=== PATIENT | male | born 1970 | race Caucasian/White ===

== ENCOUNTER 2017-02-13 11:50 | Inpatient (IN) | payer BC ==
--- NOTE | 2017-02-13 13:44 | RAD ---
RIGHT THUMB 3 VIEWS: HISTORY: Redness and swelling of right thumb with tenderness. FINDINGS: Soft tissue swelling noted. No osseous abnormality seen. IMPRESSION: No acute osseous abnormality. POS: [facility]
[2017-02-13] MEDS ORDERED: Ketorolac Tromethamine 30 MG/ML VIAL ONE (14:12)
[2017-02-13] MEDS ORDERED: Adacel (T-DAP) 0.5 ML VIAL ONE (14:12)
[2017-02-13 14:19] LABS: #Eosinphils 0.4 thou/uL (0.0-0.7); #Lymphocytes 1.9 thou/uL (1.20-3.40); #Monocytes 1.2 thou/uL (0.11-0.59); #Neutrophils 11.2 thou/uL (1.40-6.50); %Basophils 0.2 % (0.0-1.0); %Eosinophils 2.4 % (0.0-10.0); %Lymphocytes 12.7 % (21.0-51.0); Hematocrit 43.1 % (42.0-52.0); Mean Platelet Volume 6.9 fL (7.4-10.4); Red Blood Cell (RBC) Count 5.21 mill/uL (4.70-6.10); White Blood Cell (WBC) Count 14.6 thou/uL (4.8-10.8)
[2017-02-13 14:33] LABS: ALT (SGPT) 16 U/L (8-55); AST (SGOT) 14 U/L (5-34); Alkaline Phosphatase 85 U/L (40-150); Anion Gap 12 mmol/L (10-20); BUN (Urea Nitrogen) 15 mg/dL (8.9-20.6); Bilirubin, Total 0.4 mg/dL (0.2-1.2); Calc. Creatinine Clearance 0 mL/min (70-130); Calcium 9.3 mg/dL (7.8-10.44); Carbon Dioxide 24 mmol/L (22-29); Chloride 107 mmol/L (98-107); Estimated GFR-MDRD 65; Globulin 3.8 g/dL (2.4-3.5); Protein, Total 7.8 g/dL (6.0-8.3)
[2017-02-13] MEDS ORDERED: Sodium Chloride 0.9% 1,000 ML IV SCH (16:01)
[2017-02-13] MEDS ORDERED: HYDROcodone/Acetaminophen 5/325 mg Tablet PO PRN (16:03)
[2017-02-13] MEDS ORDERED: FLU VACC QS2017-18 36 mo. & older 0.5 ML SYRINGE IM ONE (16:15)
[2017-02-13] MEDS: HYDROcodone/Acetaminophen 5/325 mg Tablet PO PRN ×2 (16:17→23:29)
[2017-02-13] MEDS: rOPINIRole HCl 1 MG TAB PO SCH (20:44)
--- NOTE | 2017-02-14 00:34 | HP ---
DATE OF ADMISSION: 02/13/2017 REASON/CHIEF COMPLAINT: Swelling and pain, right thumb. HISTORY OF PRESENT ILLNESS: Mr. Finnegan is a 46-year-old male with past medical history of r estless leg syndrome, noted to have right thumb swelling and pain started a few days ago. The patien t was seen in the office and given Bactrim for possible boil, but the patient states the infection di d not get better, in fact, it got worse. There is more erythema, more swelling, also noticed other a reas where he has similar swelling, pain, and redness in the scalp as well as left arm as well as leg s. The patient has a history of Staph infection in the past cleared with Bactrim, but this time, it is not working. The patient did not have any fever, no chest pain or shortness of breath. The patie nt decided to come to the hospital because of worsening of the condition. In the ER, the patient was evaluated and found to have possible Staph infection disseminated. The patient was given 1 dose of vancomycin and continued on vancomycin and admitted for further evaluation and management. PAST MEDICAL HISTORY: 1. Restless leg syndrome. 2. History of questionable emphysema. 3. Chronic back pain. PAST SURGICAL HISTORY: 1. Status post back surgery x2. 2. History of multilevel thoracic spine fractures. 3. Tobacco abuse. CURRENT MEDICATIONS: He takes Requip 0.5 mg daily, Bactrim double strength 1 b.i.d. ALLERGIES: No known drug allergies. FAMILY HISTORY: Nothing of interest. SOCIAL HISTORY: The patient lives with family. No history of alcohol intake. Smokes 1 pack a day a nd has been smoking for many years. REVIEW OF SYSTEMS: Cardiovascular: No chest pain. No shortness of breath. Respiratory: No fever or cough. Gastrointestinal: No nausea or vomiting. No abdominal pain. Genitourinary: No dysuria or hematuria. CARD DOFFER: No headache, no dizziness. PHYSICAL EXAMINATION: GENERAL: The patient is alert, awake, oriented x3. VITAL SIGNS: Temperature 98, pulse 70, respirations 20, blood pressure 130/80. HEENT: Head is normocephalic, atraumatic. Pupils equal and reactive to light. Nasopharynx is pale and dry. Hard and soft palate, no lesions seen. SKIN: Skin turgor is decreased. NECK: Supple. No JVD. LUNGS: Bilateral air entry present, no rales, no rhonchi. HEART: S1, S2, regular. ABDOMEN: Soft, no distention, no tenderness. Normal bowel sounds. CENTRAL NERVOUS SYSTEM: No focal deficits. SKIN: Right thumb area, there is marked swelling present, erythema present, tender, is warm to touch , and there is some induration, as well. A 1 cm lesion present on the left forearm and also scalp an d both thighs. LABORATORY DATA AND X-RAY FINDINGS: CBC shows WBC 14.6, hemoglobin 14, hematocrit 43, platelets 307. Metabolic panel: Sodium 139, potassium 4, chloride 106, CO2 of 25, urea nitrogen 15, creatinine 1. 8, glucose 108. Finger x-ray negative. ASSESSMENT: 1. Disseminated cutaneous Staphylococcal infection. 2. Restless leg syndrome. 3. History of back pain, status post back surgery. PLAN: 1. Vital signs q. 4 hours. 2. Activity: As tolerated. 3. Allergies: NKDA. 4. Vancomycin 1 gram IV piggyback q. 12 hours. 5. Continue home medication. 6. Diet: Regular. 7. Infectious Disease consult.
[2017-02-14] MEDS: Vancomycin HCl 1 GM in Premix Bag 1 BAG IVPB SCH ×2 (01:43→13:12)
[2017-02-14] MEDS: HYDROcodone/Acetaminophen 5/325 mg Tablet PO PRN ×5 (08:41→21:39)
--- NOTE | 2017-02-14 19:36 | CON ---
DATE OF CONSULTATION: 02/14/2017 REASON FOR CONSULTATION: Multiple abscesses. HISTORY OF PRESENT ILLNESS: A 46-year-old who has a history of possible COPD and developed multiple skin abscesses in the appendicular structures which failed treatment with outpatient Bactrim. He has been admitted and is currently on antimicrobial therapy. No headaches, visual symptoms, sore throat , odynophagia, dysphagia, no cough or sputum production or chest pain. No abdominal pain, diarrhea, voiding until without difficulty. No other joint symptoms outside the involved area. MEDICAL HISTORY: Restless leg syndrome, emphysema, back pain, prior episodes of Staphylococcal infec tions in the skin and treated with Bactrim intermittently over the past 1-2 years. PAST SURGICAL HISTORY: Laminectomy x2. MEDICATIONS: Requip back in the past, currently receiving vancomycin. ALLERGIES: None. FAMILY HISTORY: Noncontributory. SOCIAL HISTORY: Lives in [facility], works cutting trees, smokes daily for many years. PHYSICAL EXAMINATION: VITAL SIGNS: Essentially normal. SKIN: Shows multiple areas of small skin abscesses and there is a larger one in the skin of the medi al right thumb with some areas of bruising and a central area of blistering with purulence. There is a scalp abscess which is small as well left side. HEENT: No lymphadenopathy. Ocular movements are conjugate. Oral cavity normal. NECK: Supple. LUNGS: With symmetric clear breath sounds. HEART: S1, S2, regular rate and no S3, S4. ABDOMEN: Soft, not distended or tender. No ascites. No bladder distention. EXTREMITIES: No other joint inflammatory activity. Patient has a hard time in flexing his right dayday mb because of the inflammatory process. NEUROLOGIC: Nonfocal. LABORATORY: White cell count 14.6, hemoglobin 14, platelets 207,000, 76% neutrophils. Chemistry wit h creatinine 1.2. CRP is 3.77. Microbiology with Staphylococcus aureus as expected, pending suscept ibility studies. X-ray, right hand with no osseous abnormality. ASSESSMENT AND DISCUSSION: Multiple skin abscesses, the biggest one is in right thumb. I do not thi nk there is a deeper involvement, mostly limited to the superficial soft tissues of the right thumb. We will need surgical debridement there, all the other ones are too small for debridement and antimi crobial therapy should suffice. Two sets of blood cultures have been drawn, thus far negative and wi ll consult with Dr. Herndon to I&D the right thumb abscess. Continue vancomycin for now, eventually transition to oral regimen guided by the culture results and susceptibility studies. The patient wi ll need decolonization and after completion of the acute phase of treatment with 2 different antimicr obials given 1 week out of the month for 3 consecutive months. This can be followed through in the o utpatient setting.
[2017-02-14] MEDS: Morphine 4 MG/ML VIAL SLOW IVP PRN (19:56)
[2017-02-14] MEDS: rOPINIRole HCl 1 MG TAB PO SCH (20:01)
[2017-02-15 01:23] LABS: Vancomycin, Trough 6.3 ug/mL
[2017-02-15] MEDS: Vancomycin HCl 1 GM in Premix Bag 1 BAG IVPB SCH ×4 (02:06→17:19)
[2017-02-15] MEDS: HYDROcodone/Acetaminophen 5/325 mg Tablet PO PRN (08:41)
[2017-02-15] MEDS ORDERED: Ondansetron HCl/PF 4 MG/2 ML Vial ONE (11:51)
[2017-02-15] MEDS ORDERED: Succinylcholine Chloride 20 MG/ML 10 ml SYRINGE FS ONE (11:51)
[2017-02-15] MEDS ORDERED: Propofol 200 MG/20 ML VIAL ONE (11:51)
[2017-02-15] MEDS ORDERED: Lidocaine 1% PF 5 ML VIAL ONE (11:51)
[2017-02-15] MEDS: Morphine 4 MG/ML VIAL SLOW IVP PRN (16:28)
[2017-02-15] MEDS: rOPINIRole HCl 1 MG TAB PO SCH (20:07)
[2017-02-15] MEDS ORDERED: Bacitracin Zinc Ointment 30 gm TUBE ONE (21:09)
[2017-02-15] MEDS ORDERED: Bupivacaine PF 0.5% 30 ML VIAL ONE (21:10)
[2017-02-15] MEDS ORDERED: Midazolam HCl 2 mg/2 ml Vial ONE (21:25)
[2017-02-15] MEDS ORDERED: Fentanyl 100 MCG/2 ML VIAL ONE ×4 (21:25→23:20)
[2017-02-15] MEDS ORDERED: Ondansetron HCl/PF 4 MG/2 ML Vial IVP PRN (22:51)
[2017-02-15] MEDS ORDERED: Promethazine HCl 25 MG/ML VIAL SLOW IVP PRN (22:51)
[2017-02-15] MEDS ORDERED: Promethazine HCl 25 MG/ML VIAL IM PRN (22:51)
[2017-02-16] MEDS: Morphine 4 MG/ML VIAL SLOW IVP PRN ×5 (00:50→20:15)
[2017-02-16] MEDS: Vancomycin HCl 1 GM in Premix Bag 1 BAG IVPB SCH ×3 (01:51→18:02)
[2017-02-16] MEDS: HYDROcodone/Acetaminophen 5/325 mg Tablet PO PRN (03:04)
[2017-02-16] MEDS ORDERED: Meperidine HCl/PF 25 MG/ML VIAL IM PRN (06:29)
[2017-02-16] MEDS ORDERED: Promethazine HCl 25 MG/ML VIAL IM PRN (06:29)
--- NOTE | 2017-02-16 07:20 | OP ---
DATE OF SURGERY: 02/15/2017 PREOPERATIVE DIAGNOSES: Left forearm carbuncle 1.5 cm. Right thumb abscess with skin necrosis, righ t abscess extensive subcutaneous involvement with large thick fat base abscess cavity, but no violati on of the MP joint, which was in the center of the field and the CMC and PIP joint were not in the fi eld, this is on the right side. On the left side, 1.5 cm subcutaneous abscess/carbuncle, which was easily treated with incision and d rainage. PROCEDURE PERFORMED: On the left: Incision and drainage of a carbuncle abscess with packing of the wound. Cultures were taken. On the right side: 1. Incision and drainage abscess, complex. 2. Debridement of wound involving skin abscess cavity, paratenon in some places. 3. Arthrotomy, metacarpophalangeal joint with irritation, but no findings of thickened synovium or i nfection. INDICATIONS: The patient with a 5-day history of progressive swelling and reports that he has had mu ltiple left and right lower extremity abscesses, the left scalp abscess for which he was evaluated by Dr. Raman, who referred him to us because of the possible need to drain the abscess today in order t o get into a more stable condition. DESCRIPTION OF PROCEDURE: After successful general endotracheal, the limb was prepped and draped. T he patient had the wound evaluated both sides prepped and draped. No tourniquet was used on the left side, we approached the left side where the forearm carbuncle was. Here, we made a 1.5 cm incision along the entire length of a 1.5 cm raised area with a small enriquez at the center, removing whiteh ead, carried through skin and subcutaneous tissue where, kostas, found a fat base abscess cavi ty which was resected, drained, and sent the specimen to the lab. When we were undraping this case o n the left side, we then also were able to place a bulky dressing with normal saline soaked 4 x 4 ins abner. Now, we turned attention to the right side where we made a zigzag incision from the base of his dista l phalanx. All were 2.5 cm across the MP joint. All of this was indurated and red, had a raised gra y necrotic tissue area which appeared to be a bulla, because while we were prepping and draping, some of the bulla . We then carried the zigzag incision through the skin remove the bulla and very indurated area of red skin centered at the base of the abscess, but underneath this was gross purulence opened this down to the level of the TM tendons in the joint. We spared the superficial radial nerve branch we saw, and there was gross purulence under the dermis. This was required in this area to removal of the dermis , epidermis as well as circumferentially removal of all nonviable epidermis. There was no evidence o f abscess formation in the joint and certainly debrided all of the abscess cavities sparing superfici al radial nerve. The patient had no other abnormality. This side was also dressed with normal saline soaked 4 x 4 with Kerlix, and an Milo wrap. He left the operating room without complications. Cultures have been sent. Please note that the debridement on the right side involved following techniques: A. Excisional technique. B. Used a [place] blade, tenotomy scissors, 11 blade knife, and curet. C. The depth was described above down to including arthrotomy and joint. Indeed, there was a defini te infection seen.
[2017-02-16] MEDS: HYDROcodone/Acetaminophen 7.5/325 mg Tablet PO PRN (11:46)
[2017-02-16] MEDS: rOPINIRole HCl 1 MG TAB PO SCH (20:16)
[2017-02-17] MEDS: Vancomycin HCl 1 GM in Premix Bag 1 BAG IVPB SCH ×3 (01:15→17:32)
[2017-02-17 05:33] LABS: #Basophils 0.1 thou/uL (0.0-0.2); #Eosinphils 0.6 thou/uL (0.0-0.7); #Lymphocytes 2.3 thou/uL (1.20-3.40); #Monocytes 1.1 thou/uL (0.11-0.59); #Neutrophils 7.5 thou/uL (1.40-6.50); %Basophils 0.5 % (0.0-1.0); %Eosinophils 5.6 % (0.0-10.0); %Lymphocytes 19.6 % (21.0-51.0); %Monocytes 9.3 % (0.0-10.0); Hematocrit 41.1 % (42.0-52.0); Mean Platelet Volume 6.8 fL (7.4-10.4); Red Blood Cell (RBC) Count 4.97 mill/uL (4.70-6.10); White Blood Cell (WBC) Count 11.5 thou/uL (4.8-10.8)
[2017-02-17 05:59] LABS: BUN (Urea Nitrogen) 14 mg/dL (8.9-20.6); Calc. Creatinine Clearance 139 mL/min (70-130); Calcium 9.3 mg/dL (7.8-10.44); Chloride 102 mmol/L (98-107); Estimated GFR-MDRD 89
[2017-02-17 06:02] LABS: Carbon Dioxide 23 mmol/L (22-29)
[2017-02-17 06:16] LABS: Anion Gap 16 mmol/L (10-20)
[2017-02-17] MEDS: HYDROcodone/Acetaminophen 7.5/325 mg Tablet PO PRN ×2 (08:14→14:26)
[2017-02-17] MEDS ORDERED: Magnesium Citrate 300 ML BOT PO SCH (10:00)
[2017-02-17 10:05] VITALS: BMI 33.6
[2017-02-17] MEDS: Morphine 4 MG/ML VIAL SLOW IVP PRN (17:38)
[2017-02-17] MEDS: rOPINIRole HCl 1 MG TAB PO SCH (19:40)
[2017-02-18] MEDS: Vancomycin HCl 1 GM in Premix Bag 1 BAG IVPB SCH ×2 (02:02→09:32)
[2017-02-18] MEDS: HYDROcodone/Acetaminophen 7.5/325 mg Tablet PO PRN ×2 (02:08→08:29)
[2017-02-18 08:05] VITALS: BP 119/78; TEMP 98.1
[2017-02-18] MEDS: Morphine 4 MG/ML VIAL SLOW IVP PRN (09:32)
[2017-02-18] MEDS ORDERED: Clindamycin 150 MG CAP PO SCH (13:00)
--- NOTE | 2017-02-18 14:40 | DIS ---
DATE OF ADMISSION: 02/13/2017 DATE OF DISCHARGE: 02/18/2017 ADMITTING DIAGNOSES: 1. Disseminated cutaneous Staph infection. 2. Restless leg syndrome. 3. History of back pain status post back surgery. FINAL DIAGNOSES: 1. Abscess, right thumb and wrist area, status post I&D and debridement. 2. Carbuncle left forearm, status post debridement. 3. Multiple other cutaneous Staph infection. 4. Restless leg syndrome. BRIEF SUMMARY OF HOSPITAL COURSE: Mr. Finnegan is a 46-year-old male admitted because of absc ess in the right thumb area extending to the right wrist. The patient was started on vancomycin sayda use of his possible Staph infection with evidence of multiple skin infections as well as the left for earm carbuncle. A consultation was done with Dr. Raman. He felt the patient should continue on vanc omycin and after consult was done for possible incision and drainage and debridement. The patient wa s seen by Dr. Herndon, he felt the patient has right thumb abscess, complex and also carbuncle left forearm and he suggested incision and drainage as well as debridement. The patient underwent procedu re and he also did arthrotomy of the metacarpophalangeal joint. After incision and drainage the sara ent was seen and placed on wound VAC was continued on vancomycin. The patient did not have any fever , WBC count also came down. His pain was controlled with pain medications. Outpatient wound VAC is arranged and he said to go home. At the time of discharge, he was stable. His vital signs were stab le. Lungs clear to auscultation.. Heart sounds regular. Abdomen soft, nontender. Bowel sounds pre sent. DISCHARGE MEDICATIONS: Include clindamycin 300 mg q.i.d. for 2 weeks, naproxen 500 mg b.i.d. for 2 w eeks. The patient will continue with his Requip 1 mg at bedtime. He will continue with the wound [place] [facility] care as an outpatient. FOLLOWUP: The patient will come for followup in 2 weeks.
[2017-02-18] MEDS ORDERED: Naproxen 500 MG TAB PO SCH (21:00)
== END 2017-02-18 14:01 | disposition home or self-care (01) | DRG 571 ==
LOC: ERS 11:50 → T4-B 15:55
PROVIDERS: ADMIT Internal Medicine; ATTEND Internal Medicine
PROC: 0J9H0ZX Drainage of Left Lower Arm Subcutaneous Tissue and Fascia, Open Approach, Diagnostic (ICD-10-PCS; principal; 2017-02-15)
PROC: 0JBG0ZZ Excision of Right Lower Arm Subcutaneous Tissue and Fascia, Open Approach (ICD-10-PCS; 2017-02-15)
PROC: 0JBJ0ZZ Excision of Right Hand Subcutaneous Tissue and Fascia, Open Approach (ICD-10-PCS; 2017-02-15)
DX: L02.511 Cutaneous abscess of right hand (principal); L02.811 Cutaneous abscess of head [any part, except face]; J43.9 Emphysema, unspecified; F17.210 Nicotine dependence, cigarettes, uncomplicated; L02.434 Carbuncle of left upper limb; G25.81 Restless legs syndrome; G89.29 Other chronic pain; M54.9 Dorsalgia, unspecified; R23.8 Other skin changes; B95.61 Methicillin susceptible Staphylococcus aureus infection as the cause of diseases classified elsewhere; Z23 Encounter for immunization
CPT/HCPCS: 36415; 80048; 80053; 80202; 85025; 85652; 86140; 87040; 87070; 87077; 87102; 87186; 87205; 87206; 90471; 90715; 93306; 96365; 96375; A4216; J1885; J2001; J2175; J2250; J2270; J2405; J2550; J2704; J3010; J3370; J3490; S0020

== ENCOUNTER 2017-05-14 22:21 | Emergency (ER) | payer BC ==
[2017-05-15] MEDS ORDERED: Diazepam 10 MG/2 ML SYRINGE IVP SCH (00:15)
--- NOTE | 2017-05-15 10:58 | CT ---
FINAL REPORT CERVICAL SPINE CT SCAN WITHOUT IV CONTRAST: EMERGENCY AFTER HOURS EXAM TIME: 1:17 a.m. DATE: 05/15/17. No fracture or dislocation or other acute process. POS: [facility]
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
== END 2017-05-15 03:00 | disposition home or self-care (01) ==
LOC: ERS 22:21
DX: M62.830 Muscle spasm of back (principal); J43.9 Emphysema, unspecified; F17.220 Nicotine dependence, chewing tobacco, uncomplicated; Z71.6 Tobacco abuse counseling; V43.52XA Car driver injured in collision with other type car in traffic accident, initial encounter
CPT/HCPCS: 70450; 72125; 72131; 96374; 99406; J3360

== ENCOUNTER 2017-05-30 13:05 | Inpatient (IN) | payer BC, SELFPAY ==
[2017-05-30 14:18] LABS: #Eosinphils 0.4 thou/uL (0.0-0.7); #Lymphocytes 2.5 thou/uL (1.20-3.40); #Monocytes 0.7 thou/uL (0.11-0.59); #Neutrophils 5.1 thou/uL (1.40-6.50); %Basophils 0.5 % (0.0-1.0); %Eosinophils 4.7 % (0.0-10.0); %Lymphocytes 28.5 % (21.0-51.0); %Monocytes 7.5 % (0.0-10.0); %Neutrophils 58.8 % (42.0-75.0); Hemoglobin 14.1 g/dL (14.0-18.0); Mean Corpuscular HGB CONC 33.2 g/dL (32.0-36.0); Mean Corpuscular Hemoglobin 26.9 pg (27.0-31.0); Mean Corpuscular Volume 81.2 fl (80.0-94.0); Mean Platelet Volume 6.6 fL (7.4-10.4); Platelet Count 290 thou/uL (130-400); RBC Distribution Width 12.6 % (11.5-14.5); Red Blood Cell (RBC) Count 5.23 mill/uL (4.70-6.10); White Blood Cell (WBC) Count 8.8 thou/uL (4.8-10.8)
--- NOTE | 2017-05-30 16:47 | RAD ---
FOUR VIEW LEFT ELBOW SERIES: INDICATIONS: Left elbow pain. FINDINGS: There is no acute osseous abnormality. No joint capsular distention. No significant arthropathy of the left elbow. IMPRESSION: No acute osseous abnormality identified. POS: [facility]
--- NOTE | 2017-05-30 17:35 | ULT ---
SOFT TISSUE ULTRASOUND LEFT GROIN REGION: INDICATIONS: There is a palpable abnormality lateral to the left scrotum. There is a history of abscess. FINDINGS: Ultrasound demonstrates a complex mass-like area in the subcutaneous tissues, measuring approximately 2 x 1.5 cm, by ultrasound. This is lateral to the scrotum and testicle, according to the technologi st. This could represent a complex abscess, although other soft tissue mass lesions cannot be exclud ed. POS: [facility]
[2017-05-30 17:57] LABS: Anion Gap 12 mmol/L (10-20); BUN (Urea Nitrogen) 14 mg/dL (8.9-20.6); Calc. Creatinine Clearance 0 mL/min (70-130); Calcium 9.6 mg/dL (7.8-10.44); Carbon Dioxide 24 mmol/L (22-29); Chloride 103 mmol/L (98-107); Estimated GFR-MDRD 60; Glucose 197 mg/dL (70-105); Potassium 4.2 mmol/L (3.5-5.1); Sodium 135 mmol/L (136-145)
[2017-05-30] MEDS ORDERED: Lidocaine 1% PF 5 ML VIAL ONE (18:35)
[2017-05-30] MEDS ORDERED: Acetaminophen 325 MG TAB ONE (20:19)
[2017-05-30] MEDS ORDERED: Ondansetron HCl/PF 4 MG/2 ML Vial IVP PRN (20:39)
[2017-05-30] MEDS ORDERED: Ondansetron ODT 4 MG TAB SL PRN (20:39)
[2017-05-30] MEDS ORDERED: Acetaminophen 325 MG TAB PO PRN ×3 (20:39→20:41)
[2017-05-30] MEDS: HYDROcodone/Acetaminophen 5/325 mg Tablet PO PRN (21:22)
[2017-05-30] MEDS: Sodium Chloride 0.9% 1,000 ML IV SCH (21:31)
[2017-05-31] MEDS: Sodium Chloride 0.9% 1,000 ML IV SCH (03:49)
[2017-05-31] MEDS: HYDROcodone/Acetaminophen 5/325 mg Tablet PO PRN ×3 (08:25→20:19)
--- NOTE | 2017-05-31 10:22 | CON ---
DATE OF CONSULTATION: 05/30/2017 HISTORY OF PRESENT ILLNESS: This is a 47-year-old white male who is in the emergency room here at [facility] with an abscess on the superior aspect of the left scrotum. This came on over 5 days ago, i nitially went to the [facility], he said they drained it there, but did not get anything out and sent him ho me. He also had one on his finger that they drained. We do not have any reports from that. I am no t sure why they did not go back to the [facility]. He had already been on Bactrim double-strength prior to going to the [facility] ER, Dr. Davila put him on that, his doctor up in [place], because of this, but he was not getting better. At home, after leaving the [facility], he was not getting any better, started to s well and hurt again. No fevers, no chills. He has a history of an MRSA infection of the hand, I thi nk 3 years ago they said and then he has had this again. He does not have any medical problems apart from some emphysema. PAST SURGICAL HISTORY: He has had neck and back surgeries, had some knee surgery, has not had any ar tificial joints or prosthetics. He has no regular medicines. ALLERGIES: He has no known allergies. He does have some blood work done that shows normal white cou nt and normal creatinine. On his exam, he has got probably 2-3 cm area of superficial abscess involving the upper left part of the left scrotum. The testicle and cord structures are not attached to this, some surrounding indura tion. It is not draining at all, it is quite tender. He has a little bit of surrounding cellulitis, but nothing to suggest a Isauro's gangrene. The penis is without other lesions. I went ahead and talked with the patient by draining it, which is what he needs to be done and we then cleaned him up with Betadine and anesthetized an abscess as well as he can with 1% Xylocaine without epinephrine, u sed a small knife blade to incise about 2 cm across the top in the lateral direction. He had probabl y about 5-10 mL of pus that immediately came out under pressure. We then placed some more Xylocaine into the wound itself to help further and then we broke up the wall of this cavity with a hemostat. No other significant abscess cavity was noted. There was some bleeding, but not significant. 4 x 4 was placed with dry 4 x 4s on top of it and he was shown how to do this. We will get him some w ebbed underwear to keep these up in place. He has not been able to work for a few days. He should c ontinue his Bactrim, he will need to see me on or Tuesday or this week that have been in 3-4 days for a wound check. He will need to continue on the Bactrim. He already feels much better, michael ng this drain. I think, he would just take regular Tylenol as needed for pain. He can certainly meredith e a shower tomorrow. There is no restriction that regard but does need to keep it clean and dry.
[2017-05-31] MEDS: Vancomycin HCl 1 GM in Premix Bag 1 BAG IVPB SCH ×2 (11:06→21:31)
--- NOTE | 2017-05-31 18:18 | CON ---
DATE OF CONSULTATION: 05/31/2017 REASON FOR CONSULTATION: Scrotal abscess. HISTORY OF PRESENT ILLNESS: A 47-year-old whom I had seen previously for other areas of involvement by Staphylococcal skin infections. Specifically in January last year, he presented with multiple abscesses involving many areas including the right hand. The organism was identified as methicillin-resistant Staphylococcus aureus. It was susceptible to rifampin, tetracycline, Bactrim, vancomycin, and clindamycin. At this time, he presents with a scrotal inflammatory changes. He was seen by Dr. Mcneal, Urology, which was I&D'd by Dr. Mcneal. The cultures have yielded Staph aureus with pending susceptibilities. No headaches, visual symptoms, sore throat, odynophagia, or dysphagia. No dyspnea or cough. No chest pain. No abdominal pain or diarrhea. No neurological symptoms. 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 PAST SURGICAL HISTORY: Laminectomy x2. MEDICATION: Requip. Currently receiving vancomycin. ALLERGIES: None. 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 PHYSICAL EXAMINATION: SKIN: There is no distress. Scrotal dressing noted. Vital signs are normal. HEENT: Noncontributory. LUNGS: Clear. HEART: S1, S2, regular rate. ABDOMEN: Soft, nondistended. EXTREMITIES: He moves extremities equally. NEUROLOGIC: Cognitive function normal. LABORATORY: CBC is fairly unremarkable. Chemistries are fairly unremarkable except for glucose 197 with a creatinine of 1.29. IMAGING STUDIES: Elbow x-ray with no acute osseous abnormality. He had lumbar and cervical spine CT from 05/14/2017 with no acute findings. ASSESSMENT: Recurrent MRSA abscesses, now with one in the scrotal area. The patient will continue vancomycin, eventually transition to oral Bactrim and rifampin or doxycycline and rifampin, and treat for 1 week every month for 3 consecutive months for decolonization purposes. No evidence of distant sites of dissemination at this time. Evidently, if blood cultures turn positive, then we will have to modify treatment regimen, but I hope that the blood cultures will remain negative which will allow discharge planning on oral medications with the decolonization regimen. [facility]
[2017-05-31 22:33] VITALS: BMI 34.7
--- NOTE | 2017-06-01 01:44 | HP ---
DATE OF ADMISSION: 05/30/2017 CHIEF COMPLAINT: Scrotal swelling and pain and also left hand pain. HISTORY OF PRESENT ILLNESS: Mr. Finnegan is a 47-year-old male with past medical history of c hronic back pain, noticed swelling in the right groin area, which is small initially, but got bigger in the last few days and is more painful. He also has some redness of the left hand. The patient wa s on Bactrim after he was seen by me in the office. Later he went to the [facility], where they did incisio n and drainage, but the patient stated nothing came out, so we continued on Bactrim, but the swellin g got worse and at that point, he ended up coming to the emergency room because of the pain and swell ing. Because of the left hand redness and swelling, not able to move left elbow as well. In the ER, the patient was evaluated and found to have scrotal abscess on the left as well as left hand elbow p ain. The patient received vancomycin in the area, urology consult was placed. PAST MEDICAL HISTORY: 1. Chronic back pain. 2. History of restless leg syndrome. 3. Carbuncle left forearm, status post debridement. The patient had multiple Staph infections in e past. ALLERGIES: NKDA. CURRENT MEDICATION: Bactrim double strength 1 b.i.d. FAMILY HISTORY: Nothing of interest. SOCIAL HISTORY: The patient lives with family. No history of smoking. No history of alcohol. REVIEW OF SYSTEMS: Unremarkable except for pain and swelling. PHYSICAL EXAMINATION: GENERAL: The patient is alert, awake, oriented x3. VITAL SIGNS: Temperature 98, pulse 70, respirations 20, blood pressure 140/90. HEENT: Head is normocephalic, atraumatic. Pupils are equal and reactive to light. Nasopharynx pale and dry. NECK: Supple. No JVD. LUNGS: Bilateral air entry, no rales. HEART: S1, S2. ABDOMEN: Soft, no distention, no tenderness. Normal bowel sounds present. RECTAL: Left groin area, there is an abscess, upper left part of the left scrotum with some surround ing cellulitis, also has some redness and swelling of the left hand. CENTRAL NERVOUS SYSTEM: No focal deficit. EXTREMITIES: Redness of the left hand. LABORATORY AND X-RAY FINDINGS: CBC shows WBC 8.8, hemoglobin 14, hematocrit 42, platelets 290. [place] bolic panel shows sodium 135, potassium 4.8, chloride 100, CO2 of 23, urea nitrogen 14, creatinine 1. 2, glucose 196. Elbow X-ray normal. ASSESSMENT: 1. Scrotal abscess left side and left hand pain. 2. Chronic back pain. 3. History of restless leg syndrome, history of multiple Staph infections. PLAN: 1. Vital signs q. 4 hours. 2. Activity: As tolerated. 3. Allergies: NKDA. 4. Diet: Regular. 5. Vancomycin 1 gram IV piggyback q.12 hours and [place] p.r.n. 6. Urology consult. 7. Infectious disease consult.
[2017-06-01] MEDS: HYDROcodone/Acetaminophen 5/325 mg Tablet PO PRN ×3 (03:30→16:30)
[2017-06-01 09:10] LABS: Vancomycin, Trough 8.3 ug/mL
[2017-06-01] MEDS: Vancomycin HCl 1 GM in Premix Bag 1 BAG IVPB SCH ×3 (10:13→21:29)
[2017-06-01] MEDS: Milk Of Magnesia 30 ML UDCUP PO PRN (21:29)
[2017-06-02 05:29] LABS: Vancomycin, Trough 18.4 ug/mL
[2017-06-02] MEDS: Vancomycin HCl 1 GM in Premix Bag 1 BAG IVPB SCH ×2 (05:58→14:39)
[2017-06-02] MEDS: HYDROcodone/Acetaminophen 5/325 mg Tablet PO PRN (07:52)
[2017-06-02] MEDS: Milk Of Magnesia 30 ML UDCUP PO PRN (07:53)
[2017-06-02 09:17] VITALS: BP 130/85; TEMP 97.4
== END 2017-06-02 19:40 | disposition home or self-care (01) | DRG 728 ==
LOC: ERS 13:05 → 2SW 18:00 → OBSVTOIN 18:00 → T4-A 06-01 16:37
PROVIDERS: ADMIT Internal Medicine; ATTEND Internal Medicine
DX: N49.2 Inflammatory disorders of scrotum (principal); F17.210 Nicotine dependence, cigarettes, uncomplicated; Z86.14 Personal history of Methicillin resistant Staphylococcus aureus infection; G89.29 Other chronic pain; G25.81 Restless legs syndrome; M54.9 Dorsalgia, unspecified; L03.011 Cellulitis of right finger
CPT/HCPCS: 36415; 76999; 80048; 80202; 85025; 87040; 87070; 87077; 87186; 87205; 96365; A4216; J2001; J3370

== ENCOUNTER 2018-07-21 12:52 | Emergency (ER) | payer BC, SELFPAY ==
[2018-07-21] MEDS ORDERED: methylPREDNISolone Sod Succ/PF 125 MG/2 ML VIAL ONE (13:13)
[2018-07-21] MEDS ORDERED: Magnesium 2 GM/50 ML BAG (IN WATER) ONE (13:13)
[2018-07-21 13:27] LABS: #Eosinphils 0.6 thou/uL (0.0-0.7); #Lymphocytes 1.9 thou/uL (1.20-3.40); #Monocytes 1.5 thou/uL (0.11-0.59); #Neutrophils 7.6 thou/uL (1.40-6.50); %Basophils 0.4 % (0.0-1.0); %Eosinophils 5.4 % (0.0-10.0); %Lymphocytes 16.5 % (21.0-51.0); %Monocytes 12.7 % (0.0-10.0); %Neutrophils 65.1 % (42.0-75.0); Hemoglobin 13.9 g/dL (14.0-18.0); Mean Corpuscular HGB CONC 34.3 g/dL (32.0-36.0); Mean Corpuscular Hemoglobin 27.2 pg (27.0-31.0); Mean Corpuscular Volume 79.3 fL (78.0-98.0); Mean Platelet Volume 7.3 fL (7.4-10.4); Platelet Count 270 thou/uL (130-400); RBC Distribution Width 12.6 % (11.5-14.5); Red Blood Cell (RBC) Count 5.12 mill/uL (4.70-6.10); White Blood Cell (WBC) Count 11.7 thou/uL (4.8-10.8)
--- NOTE | 2018-07-21 13:57 | RAD ---
CHEST 1 VIEW: Date: 07/21/18 HISTORY: Chest pain, cough, shortness of breath, and fever. COMPARISON: 08/06/16. FINDINGS: Stable appearing linear parenchymal changes in both lung bases. Heart size is within normal limits. N o confluent pneumonia, overt edema, or pleural effusion. IMPRESSION: Stable bibasilar chronic linear changes. No new process. No evidence for pneumonia. POS: C
[2018-07-21 14:11] LABS: ALT (SGPT) 18 U/L (8-55); AST (SGOT) 15 U/L (5-34); Albumin 4.3 g/dL (3.5-5.0); Alkaline Phosphatase 70 U/L (40-150); Anion Gap 12 mmol/L (10-20); BUN (Urea Nitrogen) 14 mg/dL (8.9-20.6); Bilirubin, Total 0.6 mg/dL (0.2-1.2); Calc. Creatinine Clearance 0 mL/min (70-130); Calcium 9.8 mg/dL (7.8-10.44); Carbon Dioxide 24 mmol/L (22-29); Chloride 104 mmol/L (98-107); Estimated GFR-MDRD 80; Globulin 3.4 g/dL (2.4-3.5); Glucose 101 mg/dL (70-105); Potassium 3.8 mmol/L (3.5-5.1); Protein, Total 7.7 g/dL (6.0-8.3); Sodium 136 mmol/L (136-145)
== END 2018-07-21 14:30 | disposition home or self-care (01) ==
LOC: ERS 12:52
DX: J44.1 Chronic obstructive pulmonary disease with (acute) exacerbation (principal); F17.220 Nicotine dependence, chewing tobacco, uncomplicated; Z79.51 Long term (current) use of inhaled steroids
CPT/HCPCS: 71045; 80053; 83880; 84484; 85025; 87040; 93005; 94640; 96365; 96375; J2930; J3475; J7620

== ENCOUNTER 2018-08-30 19:41 | Emergency (ER) | payer SELFPAY ==
--- NOTE | 2018-08-30 20:46 | RAD ---
EXAM: 3 views of the right ankle HISTORY: Ankle pain COMPARISON: 11/21/2006 FINDINGS: 3 views of the right ankle shows no evidence of acute fracture or dislocation. Moderate dif fuse soft tissue swelling is seen. No degenerative changes are present. IMPRESSION: No evidence of acute osseous abnormality.
== END 2018-08-30 21:46 | disposition home or self-care (01) ==
LOC: ERS 19:41
DX: S93.401A Sprain of unspecified ligament of right ankle, initial encounter (principal); W18.30XA Fall on same level, unspecified, initial encounter

== ENCOUNTER 2018-10-08 18:02 | Emergency (ER) | payer SELFPAY ==
[2018-10-08] MEDS ORDERED: Haloperidol Lactate 5 MG/ML VIAL ONE (19:00)
[2018-10-08 19:01] LABS: #Basophils 0.1 thou/uL (0.0-0.2); #Eosinphils 0.2 thou/uL (0.0-0.7); #Lymphocytes 2.3 thou/uL (1.20-3.40); #Monocytes 0.5 thou/uL (0.11-0.59); #Neutrophils 4.8 thou/uL (1.40-6.50); %Basophils 1.1 % (0.0-1.0); %Eosinophils 2.9 % (0.0-10.0); %Lymphocytes 29.2 % (21.0-51.0); %Monocytes 6.8 % (0.0-10.0); Hemoglobin 13.9 g/dL (14.0-18.0); Mean Corpuscular HGB CONC 33.8 g/dL (32.0-36.0); Mean Corpuscular Hemoglobin 26.8 pg (27.0-31.0); Mean Corpuscular Volume 79.2 fL (78.0-98.0); Mean Platelet Volume 7.4 fL (7.4-10.4); Platelet Count 248 thou/uL (130-400); RBC Distribution Width 12.7 % (11.5-14.5); Red Blood Cell (RBC) Count 5.19 mill/uL (4.70-6.10); White Blood Cell (WBC) Count 7.9 thou/uL (4.8-10.8)
[2018-10-08 19:48] LABS: ALT (SGPT) 24 U/L (8-55); AST (SGOT) 18 U/L (5-34); Albumin 4.1 g/dL (3.5-5.0); Alkaline Phosphatase 65 U/L (40-150); Anion Gap 12 mmol/L (10-20); BUN (Urea Nitrogen) 10 mg/dL (8.9-20.6); Bilirubin, Total 0.3 mg/dL (0.2-1.2); CK (CPK) 94 U/L (30-200); Calc. Creatinine Clearance 0 mL/min (70-130); Carbon Dioxide 25 mmol/L (22-29); Chloride 107 mmol/L (98-107); Estimated GFR-MDRD 72; Globulin 2.7 g/dL (2.4-3.5); Glucose 113 mg/dL (70-105); Potassium 3.8 mmol/L (3.5-5.1); Protein, Total 6.8 g/dL (6.0-8.3); Sodium 140 mmol/L (136-145)
== END 2018-10-08 20:05 | disposition home or self-care (01) ==
LOC: ERS 18:02
DX: M62.838 Other muscle spasm (principal); J43.9 Emphysema, unspecified; Z79.51 Long term (current) use of inhaled steroids; Z79.899 Other long term (current) drug therapy
CPT/HCPCS: 80053; 82550; 83605; 85025; 96361; 96374; J1630

== ENCOUNTER 2018-11-18 08:13 | Emergency (ER) | payer SELFPAY ==
--- NOTE | 2018-11-18 09:01 | RAD ---
EXAM: Portable chest PROVIDED CLINICAL HISTORY: Shortness of breath COMPARISON: 07/21/2018 FINDINGS: Cardiac and mediastinal silhouette is within normal limits. No focal consolidation, pleural fluid or pneumothorax evident. Bibasilar subsegmental atelectatic changes are seen. Stable blunting of left costophrenic angle. IMPRESSION: No evidence for an acute cardiopulmonary process.
[2018-11-18] MEDS ORDERED: Albuterol Sulfate 2.5 mg/0.5 ml Neb ONE (09:05)
[2018-11-18] MEDS ORDERED: predniSONE 20 MG TAB ONE (09:37)
[2018-11-18] MEDS ORDERED: Dexamethasone 10 MG/ML VIAL ONE (09:37)
== END 2018-11-18 09:55 | disposition home or self-care (01) ==
LOC: ERS 08:13
DX: J45.901 Unspecified asthma with (acute) exacerbation (principal); J43.9 Emphysema, unspecified; F17.220 Nicotine dependence, chewing tobacco, uncomplicated; Z79.51 Long term (current) use of inhaled steroids; Z79.899 Other long term (current) drug therapy
CPT/HCPCS: 71045; 93005; 94640; 96372; J1100; J7512; J7611; J7620

== ENCOUNTER 2018-12-30 09:42 | Emergency (ER) | payer SELFPAY ==
[2018-12-30] MEDS ORDERED: Dexamethasone 4 MG TAB ONE (10:40)
[2018-12-30] MEDS ORDERED: Ketorolac Tromethamine 60 MG/2 ML VIAL ONE (10:40)
--- NOTE | 2018-12-30 10:50 | RAD ---
XR Lumbar Spine 2 Or 3 View History: Pain. Radiculopathy Comparison: None. Findings: Lumbosacral transitional vertebra at L5. No acute fracture or malalignment. Mild L4/L5 and L5/S1 degenerative disc space height loss. Impression: Degenerative changes. No acute osseous abnormality.
== END 2018-12-30 11:32 | disposition home or self-care (01) ==
LOC: ERS 09:42
DX: M54.16 Radiculopathy, lumbar region (principal); J43.9 Emphysema, unspecified; F17.220 Nicotine dependence, chewing tobacco, uncomplicated; Z79.899 Other long term (current) drug therapy; Z79.51 Long term (current) use of inhaled steroids
CPT/HCPCS: 72100; 96372; J1885; J8540

== ENCOUNTER 2019-01-31 08:37 | Inpatient (IN) | payer SELFPAY ==
[2019-01-31] MEDS ORDERED: methylPREDNISolone Sod Succ/PF 125 MG/2 ML VIAL ONE (08:59)
[2019-01-31] MEDS ORDERED: Piperacillin/Tazobactam 4.5 GM VIAL ONE (10:31)
[2019-01-31] MEDS ORDERED: Sodium Chloride 0.9% 100 ML ONE (10:31)
[2019-01-31 14:47] LABS: Hemoglobin 12.5 g/dL (14.0-18.0); Mean Corpuscular HGB CONC 34.2 g/dL (32.0-36.0); Mean Corpuscular Hemoglobin 27.1 pg (27.0-31.0); Mean Corpuscular Volume 79.1 fL (78.0-98.0); Mean Platelet Volume 7.4 fL (7.4-10.4); Platelet Count 339 thou/uL (130-400); RBC Distribution Width 12.5 % (11.5-14.5); Red Blood Cell (RBC) Count 4.64 mill/uL (4.70-6.10)
[2019-01-31 14:48] LABS: Band 12 % (5-11); MDiff Complete? YES; Manual Diff?? YES; Neutrophil 67 % (42-75)
[2019-01-31 14:49] LABS: Eosinophils 2 % (0-10); Lymphocytes 10 % (21-51); Monocytes 8 % (0-10)
[2019-01-31 15:30] VITALS: BMI 29.1
[2019-01-31] MEDS ORDERED: Acetaminophen 325 MG TAB PO PRN (16:27)
[2019-01-31] MEDS ORDERED: hydrALAZINE 20 MG/ML VIAL SLOW IVP PRN (16:27)
[2019-01-31] MEDS ORDERED: Benzonatate 100 MG CAP PO PRN (16:27)
[2019-01-31] MEDS ORDERED: FLU VACC QS2019-20(6MOS UP)/PF 60 MCG/0.5 ML SYRINGE IM ONE (16:30)
[2019-01-31] MEDS ORDERED: Azithromycin 500 MG in Sodium Chloride 0.9% 250 ML 250 ML IVPB SCH (17:00)
--- NOTE | 2019-01-31 17:06 | RAD ---
PORTABLE CHEST: 01/31/19 INDICATION: Shortness of breath. There is patchy infiltrate in both lower lung coronado. CP angles are obscured suggesting small bilater al effusions. Upper lung zones are clears. IMPRESSION: Evidence of bibasilar infiltrates and small bilateral effusions. POS: H
[2019-01-31] MEDS ORDERED: cefTRIAXone\\ROCEPHIN 1 GM in Sodium Chloride 0.9% 100 ML IVPB SCH (18:00)
[2019-01-31] MEDS: Mometasone/Formoterol 120 PUFF INHALER INH SCH (19:30)
[2019-01-31 19:52] LABS: Troponin I 0.014 ng/mL (< 0.028)
[2019-01-31 19:54] LABS: ALT (SGPT) 23 U/L (8-55); AST (SGOT) 17 U/L (5-34); Albumin 3.8 g/dL (3.5-5.0); Alkaline Phosphatase 100 U/L (40-110); Anion Gap 15 mmol/L (10-20); BUN (Urea Nitrogen) 9 mg/dL (8.9-20.6); Bilirubin, Total 0.7 mg/dL (0.2-1.2); Calc. Creatinine Clearance 144 mL/min (70-130); Carbon Dioxide 24 mmol/L (22-29); Chloride 103 mmol/L (98-107); Estimated GFR-MDRD Greater than 90; Globulin 2.9 g/dL (2.4-3.5); Glucose 93 mg/dL (70-105); Potassium 4.3 mmol/L (3.5-5.1); Protein, Total 6.7 g/dL (6.0-8.3); Sodium 138 mmol/L (136-145)
[2019-01-31] MEDS: guaiFENesin ER 600 MG TAB PO SCH (20:02)
--- NOTE | 2019-01-31 23:07 | HP ---
PRIMARY CARE PHYSICIAN: The patient currently does not have a primary care physician. CHIEF COMPLAINT: Shortness of breath and cough. HISTORY OF PRESENT ILLNESS: Mr. Finnegan is a pleasant 48-year-old gentleman who has a history of COPD and emphysema. He says that he was in his usual state of health until around Thanksgiving when he started feeling "bad." He says he had "a hard cough." which was productive of some yellowish phlegm. He also noted some fever as well. He also says he was short of breath. He had some nausea, but no vomiting and he does note a decrease in his appetite. He says he was starting to feel better yesterday, so he wanted to delay going to see the doctor, but then last night he says it came back on extremely hard and as a result, he came to the ER for evaluation. In the ER, he was noted to have an elevated white blood cell count and radiographic evidence consistent with right lower lobe pneumonia and is being admitted. REVIEW OF SYSTEMS: All systems were reviewed and are negative except for that mentioned in the history of present illness. PAST MEDICAL HISTORY: Significant for restless legs syndrome, emphysema, history of skin abscesses, and chronic back pain. PAST SURGICAL HISTORY: He has had a lumbar laminectomy 10 years ago. ALLERGIES: NO KNOWN DRUG ALLERGIES. SOCIAL HISTORY: He is . He has 5 children. He is a former smoker. He quit 5 years ago. Prior to that he smoked at least 20 years, 2-3 packs a day. He also denies any alcohol use. FAMILY HISTORY: He says there is no illnesses that run in the family. CURRENT MEDICATIONS: Include, he says he has an albuterol inhaler as well as albuterol nebs. He also says he has another inhaler, but he cannot remember the name, but thinks it could be an Advair inhaler. PHYSICAL EXAMINATION: GENERAL: He is alert and oriented. He appears to be in no acute distress. He is well developed and well nourished. HEENT: Pupils are equal, round, and reactive to light. Extraocular muscles are intact. Sclerae anicteric. Throat, he has moist mucous membranes. There is no erythema. No exudates. NECK: No adenopathy, no bruits. LUNGS: He has rales bilaterally, but more so on the right than on the left as well as some scattered mild expiratory wheezing. CARDIOVASCULAR: He has a normal S1, S2. I did not appreciate an S3 or S4. No murmurs, clicks, or rubs. ABDOMEN: Obese. It is soft, nontender, and nondistended. Positive for bowel sounds. No rebound. No guarding. No organomegaly. EXTREMITIES: There is no clubbing or cyanosis. No edema. No calf tenderness. No joint effusions. NEUROLOGIC: His cranial nerves 2 through 12 are grossly intact. Muscle strength is 5/5 in both his upper and lower extremities. SKIN AND INTEGUMENT: On the right lower extremity, he has an area that has some scarring and no tear from a previous skin graft. Otherwise, no other lesions. LABORATORY DATA: His CBC; the white blood cell count 17, hemoglobin 12.5, hematocrit is 36.7, and platelet count was 239. It was noted that he had a cold agglutinin and x-ray by my reading, it appears as if he has mild cardiomegaly and increased pulmonary vascular markings on the right and I am unable to see the right hemidiaphragm, possibly indicating an effusion. ASSESSMENT: This is a pleasant 48-year-old gentleman who presents to the emergency room with cough, shortness of breath, and leukocytosis. He also has radiographic evidence of pneumonia. He will be admitted to the medical floor due to leukocytosis and the fever. He meets sepsis criteria. This appears to be a community-acquired pneumonia and therefore will be treated as such. He will be placed on Rocephin and azithromycin. We will follow up on the blood culture results, mild IV high hydration. For chronic obstructive pulmonary disease, we will have DuoNebs p.r.n. and will need to reconcile and restart his inhaler, which I suspect was a long-acting beta agonist. He will also be placed on deep venous thrombosis and gastrointestinal prophylaxis. Job ID: [id number]
[2019-02-01 06:33] LABS: Anion Gap 13 mmol/L (10-20); BUN (Urea Nitrogen) 14 mg/dL (8.9-20.6); Calc. Creatinine Clearance 132 mL/min (70-130); Calcium 9.2 mg/dL (7.8-10.44); Carbon Dioxide 24 mmol/L (22-29); Chloride 108 mmol/L (98-107); Estimated GFR-MDRD 88; Glucose 150 mg/dL (70-105); Potassium 4.2 mmol/L (3.5-5.1); Sodium 141 mmol/L (136-145)
[2019-02-01] MEDS: Mometasone/Formoterol 120 PUFF INHALER INH SCH (07:24)
[2019-02-01 07:35] LABS: #Basophils 0.1 thou/uL (0.0-0.2); #Lymphocytes 1.8 thou/uL (1.20-3.40); #Monocytes 1.6 thou/uL (0.11-0.59); #Neutrophils 14.8 thou/uL (1.40-6.50); %Basophils 0.5 % (0.0-1.0); %Eosinophils 0.2 % (0.0-10.0); %Lymphocytes 9.9 % (21.0-51.0); %Monocytes 8.5 % (0.0-10.0); Hemoglobin 11.6 g/dL (14.0-18.0); Mean Corpuscular HGB CONC 32.8 g/dL (32.0-36.0); Mean Corpuscular Hemoglobin 26.4 pg (27.0-31.0); Mean Corpuscular Volume 80.6 fL (78.0-98.0); Mean Platelet Volume 6.8 fL (7.4-10.4); Platelet Count 360 thou/uL (130-400); RBC Distribution Width 12.2 % (11.5-14.5); Red Blood Cell (RBC) Count 4.41 mill/uL (4.70-6.10); White Blood Cell (WBC) Count 18.3 thou/uL (4.8-10.8)
[2019-02-01] MEDS: guaiFENesin ER 600 MG TAB PO SCH (08:15)
[2019-02-01] MEDS ORDERED: Sodium Chloride 0.9% 1,000 ML IV SCH (08:15)
[2019-02-01] MEDS ORDERED: Enoxaparin Sodium 40 MG/0.4 ML SYRINGE SC SCH (09:00)
--- NOTE | 2019-02-01 15:12 | PDOC.HOSPP ---
- Subjective Encounter Date: 02/01/19 Encounter Time: 15:10 Subjective: Mr. Finnegan was seen today in follow-up of Pneumonia with sepsis. He says he is feeling much better. He says he feels " great". - Objective Vital Signs & Weight: Vital Signs (12 hours) Temp Pulse Resp BP Pulse Ox 02/01/19 14:26 102 H 20 02/01/19 11:36 97.5 F L 73 20 124/83 93 L 02/01/19 08:00 96 02/01/19 07:52 97.7 F 85 20 113/66 90 L 02/01/19 07:23 71 14 96 02/01/19 03:58 97.8 F 74 19 98/58 L 94 L Weight Weight 209 lb Result Diagrams: 02/01/19 05:54 02/01/19 05:54 Hospitalist ROS - Medication Medications: Active Medications Generic Name Dose Route Start Last Admin Trade Name Freq PRN Reason Stop Dose Admin Acetaminophen 650 mg 01/31/19 16:27 01/31/19 17:56 Tylenol PO 650 mg Q4H PRN Administration Headache/Fever/Mild Pain (1-3) Albuterol/Ipratropium 3 ml 01/31/19 19:00 02/01/19 14:26 Duoneb NEB 3 ml [id number] JA Administration Enoxaparin Sodium 40 mg 02/01/19 09:00 02/01/19 08:15 Lovenox SC 40 mg 0900 JA Administration Guaifenesin 600 mg 01/31/19 21:00 02/01/19 08:15 Mucinex PO 600 mg Q12HR JA Administration Azithromycin 500 mg/ Sodium 250 mls @ 250 mls/hr 01/31/19 17:00 01/31/19 17: 56 Chloride IVPB 250 mls 1700 JA Administration Ceftriaxone Sodium 1 gm/ 100 mls @ 200 mls/hr 01/31/19 18:00 01/31/19 17:56 Sodium Chloride IVPB 100 mls 1800 JA Administration Sodium Chloride 1,000 mls @ 75 mls/hr 02/01/19 08:15 02/01/19 08:16 Normal Saline 0.9% IV 1,000 mls .[id number] JA Administration Mometasone Furoate/Formoterol Fumar 1 puff 01/31/19 18:30 12/05/19 07:24 Dulera 100 Mcg/5 Mcg Inhaler INH 1 puff BID-RT JA Administration Sodium Chloride 10 ml 02/01/19 09:00 02/01/19 08:16 Flush - Normal Saline IVF 10 ml Q12HR JA Administration - Exam Eye: PERRL Heart: RRR, no murmur, no gallops, no rubs, normal peripheral pulses Respiratory: no wheezes, no ronchi, normal chest expansion, rales Gastrointestinal: soft, non-tender, non-distended, normal bowel sounds, no palpable masses, no hepatomegaly Extremities: no cyanosis, no edema Hosp A/P (1) Pneumonia Code(s): J18.9 - PNEUMONIA, UNSPECIFIED ORGANISM Status: Acute (2) Sepsis Code(s): A41.9 - SEPSIS, UNSPECIFIED ORGANISM Status: Acute (3) COPD (chronic obstructive pulmonary disease) Status: Acute - Plan * Pneumonia- improved- he is clinically much improved * Stable for discharge home
[2019-02-01 17:03] VITALS: BP 124/80; TEMP 97.9
--- NOTE | 2019-02-02 05:03 | DIS ---
DATE OF ADMISSION: 01/31/2019 DATE OF DISCHARGE: 02/01/2019 DISCHARGE DISPOSITION: Home. PRIMARY DISCHARGE DIAGNOSES: 1. Community-acquired pneumonia. 2. Sepsis. 3. Chronic obstructive pulmonary disease. DISCHARGE MEDICATIONS: Include Tessalon Perles 100 mg q.6 as needed, azithromycin 250 mg daily, and albuterol nebs q.4 as needed. CODE STATUS: Full code. ALLERGIES: NO KNOWN DRUG ALLERGIES. HOSPITAL COURSE: Mr. Finnegan is a pleasant 48-year-old gentleman who presented to the emergency room with complaints of cough and shortness of breath. He was found to have an infiltrate by x-ray. He was also found to have an elevated white count and high fever. Therefore, he was admitted with pneumonia and sepsis. The patient was started on IV Rocephin and azithromycin. The following day, he was feeling much improved and said he felt 100% better and was wanting to go home. He was afebrile and tolerating p.o. and therefore will be discharged home to continue a course of azithromycin. The patient plans to follow up with Dr. Davila in approximately 1 week. Job ID: [id number]
== END 2019-02-01 16:37 | disposition home or self-care (01) | DRG 871 ==
LOC: ERS 08:37 → T4-B 13:02
PROVIDERS: ADMIT Internal Medicine; ATTEND Internal Medicine
DX: A41.9 Sepsis, unspecified organism (principal); J18.9 Pneumonia, unspecified organism; J43.9 Emphysema, unspecified; G25.81 Restless legs syndrome; Z87.891 Personal history of nicotine dependence; G89.29 Other chronic pain; M54.9 Dorsalgia, unspecified
CPT/HCPCS: 36415; 71045; 80048; 80053; 83880; 84484; 85025; 87040; 94640; J0456; J0696; J1650; J2543; J2930; J3370; J3490; J7050; J7620

== ENCOUNTER 2019-09-28 12:29 | Outpatient (CLI) | payer BC ==
[~2019-09-28 12:29] MED LIST: Magnevist 469MG/ML 20 ML VIAL ONE
--- NOTE | 2019-09-28 14:21 | MRI ---
MRI OF BRAIN WITH AND WITHOUT CONTRAST: INDICATION: Mild clonus. Procedure protocol was followed with and without contrast. Motion artifact degrades many of the sequences. FINDINGS: Ventricles have normal size and position. There is no evidence of restricted diffusion. No mass or edema. No significant white matter abnormality. Hippocampal formations appear symmetric and within normal range. No abnormal enhancement identified on postcontrast images. The intracranial internal carotid arterie s, cerebral arteries, and dural venous sinuses exhibit flow voids. Paranasal sinuses appear clear. IMPRESSION: Unremarkable MRI of brain. POS: AH
== END 2019-09-28 12:30 | disposition home or self-care (01) ==
LOC: MRI 12:29 → EEG 12:30
PROVIDERS: ATTEND Psychiatry & Neurology Neurology
DX: G25.3 Myoclonus (principal)
CPT/HCPCS: 70553; 95816

== ENCOUNTER 2019-12-16 11:10 | Emergency (ER) | payer BC, SELFPAY ==
[2019-12-16] MEDS ORDERED: HYDROcodone/Acetaminophen 5/325 mg Tablet ONE (12:23)
[2019-12-16] MEDS ORDERED: Ketorolac Tromethamine 30 MG/ML VIAL ONE (12:23)
== END 2019-12-16 13:25 | disposition home or self-care (01) ==
LOC: ERS 11:10
DX: M54.31 Sciatica, right side (principal); J44.9 Chronic obstructive pulmonary disease, unspecified; F17.220 Nicotine dependence, chewing tobacco, uncomplicated; Z79.899 Other long term (current) drug therapy
CPT/HCPCS: 96372; 99283; J1885

== ENCOUNTER 2020-01-08 09:55 | Emergency (ER) | payer SELFPAY ==
[2020-01-08] MEDS ORDERED: Ketorolac Tromethamine 30 MG/ML VIAL ONE (11:52)
== END 2020-01-08 12:19 | disposition home or self-care (01) ==
LOC: ERS 09:55
DX: G89.29 Other chronic pain (principal); M54.5 Low back pain; J44.9 Chronic obstructive pulmonary disease, unspecified; F17.220 Nicotine dependence, chewing tobacco, uncomplicated; Z79.899 Other long term (current) drug therapy
CPT/HCPCS: 96372; 99283; J1885

== ENCOUNTER 2020-04-17 06:42 | Emergency (ER) | payer BC, SELFPAY ==
[2020-04-17] MEDS ORDERED: HYDROcodone/Acetaminophen 7.5/325 mg Tablet ONE (06:52)
[2020-04-17] MEDS ORDERED: Ketorolac Tromethamine 30 MG/ML VIAL ONE (06:52)
--- NOTE | 2020-04-17 09:06 | RAD ---
TWO VIEWS RIGHT ANKLE: DATE: 04/17/2020. PROVIDED CLINICAL HISTORY: Pain. FINDINGS: There is no evidence for a fracture or other acute osseous abnormality. If there is persistent clini ximena concern, conservative management and followup imaging are advised. IMPRESSION: As above. POS: MATTHIEU
--- NOTE | 2020-04-17 09:11 | RAD ---
TWO VIEWS RIGHT FORELEG: DATE: 04/17/2020. PROVIDED CLINICAL HISTORY: Pain. FINDINGS: No evidence for a fracture or other acute osseous abnormality. If there is persistent clinical zoie rn, conservative management and followup imaging are advised. IMPRESSION: As above. POS: MATTHIEU
== END 2020-04-17 07:32 | disposition home or self-care (01) ==
LOC: ERS 06:42
DX: M25.571 Pain in right ankle and joints of right foot (principal); J44.9 Chronic obstructive pulmonary disease, unspecified; Z79.51 Long term (current) use of inhaled steroids; F17.220 Nicotine dependence, chewing tobacco, uncomplicated
CPT/HCPCS: 96372; J1885

== ENCOUNTER 2023-04-26 17:52 | Emergency (ER) | payer SELFPAY ==
[2023-04-26 18:40] LABS: Prothrombin Time 12.6 sec (12.0-14.7)
[2023-04-26 18:48] LABS: Acetaminophen Less than 10 mcg/mL (10.0-30.0); Alcohol Less than 10.0 mg/dL (Less than 10); Salicylate Less than 8.0 mg/dL (15.0-30.0)
[2023-04-26 18:49] LABS: ALT (SGPT) 12 U/L (8-55); AST (SGOT) 14 U/L (5-34); Albumin 4.2 g/dL (3.5-5.0); Alkaline Phosphatase 81 U/L (40-110); Anion Gap 13 mmol/L (10-20); BUN (Urea Nitrogen) 12 mg/dL (8.4-25.7); Bilirubin, Total 0.3 mg/dL (0.2-1.2); Calc. Creatinine Clearance 0 mL/min (70-130); Carbon Dioxide 25 mmol/L (22-29); Chloride 105 mmol/L (98-107); Estimated GFR 88; Globulin 2.7 g/dL (2.4-3.5); Glucose 147 mg/dL (70-105); Potassium 4.4 mmol/L (3.5-5.1); Protein, Total 6.9 g/dL (6.0-8.3); Sodium 139 mmol/L (136-145)
[2023-04-26 18:52] LABS: PTT 22.4 sec (22.9-36.1)
[2023-04-26] MEDS ORDERED: fentaNYL 50 mcg/mL 1 mL Vial ONE (20:25)
== END 2023-04-26 21:46 | disposition home or self-care (01) ==
LOC: ERS 17:52
DX: S42.031A Displaced fracture of lateral end of right clavicle, initial encounter for closed fracture (principal); S00.03XA Contusion of scalp, initial encounter; V86.59XA Driver of other special all-terrain or other off-road motor vehicle injured in nontraffic accident, initial encounter
CPT/HCPCS: 70450; 71045; 71260; 72125; 74177; 80053; 80307; 85610; 85730; 93005; 96374; G0390; J3010